=== PATIENT | female | born 1950 | race Asian ===

== ENCOUNTER 2018-10-21 06:20 | Day surgery (SDC) | payer OTHER ==
[~2018-10-21] VITALS: Ht 154.9 cm; Wt 86.0 kg
[2018-10-21] VITALS (14 sets, daily range): BP systolic 115–178; BP diastolic 57–84; PULSE 74–86; RESP 14–24
[~2018-10-21 06:20] MED LIST: BASAGLAR; aspirin; glipizide; ibuprofen; losartan; metformin; vitamin d3
[2018-10-21] MEDS ORDERED: PROPOFOL 60 ML ONE (12:51)
== END 2018-10-21 11:07 | disposition home or self-care (01) ==
LOC: GIL 06:20
PROVIDERS: ATTEND Internal Medicine Gastroenterology
DX: D12.5 Benign neoplasm of sigmoid colon (principal); D12.2 Benign neoplasm of ascending colon; D12.0 Benign neoplasm of cecum; D12.3 Benign neoplasm of transverse colon; E11.9 Type 2 diabetes mellitus without complications; Z79.84 Long term (current) use of oral hypoglycemic drugs
CPT/HCPCS: 45385; 82962; Z7610; 88305